=== PATIENT | female | born 1960 | race Caucasian/White ===

== ENCOUNTER 2016-11-04 08:51 | Day surgery (SDC) | payer OTHER ==
[~2016-11-04] VITALS: Ht 172.7 cm; Wt 66.8 kg
[2016-11-04] VITALS (9 sets, daily range): BP systolic 91–109; BP diastolic 68–77; PULSE 64–81; RESP 18–30; Ht 172.7 cm; Wt 66.8 kg
[2016-11-04] MEDS ORDERED: SEVOFLURANE 15 MIN ONE (09:00)
[2016-11-04] MEDS ORDERED: EPINEPHrine 1 MG/ML 30 ML INJ ONE (09:24)
[2016-11-04] MEDS ORDERED: FENTAnyl 50 MCG/ML VIAL ONE ×3 (09:28→11:46)
[2016-11-04] MEDS ORDERED: MIDAZOLAM 1 MG/ML 2 ML INJ ONE ×2 (09:28→09:29)
[2016-11-04] MEDS ORDERED: ROPIVACAINE 0.5 % 30 ML VIAL ONE (09:28)
[2016-11-04] MEDS ORDERED: ONDANSETRON 4 MG INJ ONE (09:59)
[2016-11-04] MEDS ORDERED: PROPOFOL 20 ML ONE (09:59)
[2016-11-04] MEDS ORDERED: SUCCINYLCHOLINE CHLORIDE 100 MG/5 ML SYG IV ONE (09:59)
[2016-11-04] MEDS ORDERED: CEFAZOLIN 1 GM INJ ONE (09:59)
[2016-11-04] MEDS ORDERED: METOCLOPRAMIDE 10 MG INJ ONE (09:59)
[2016-11-04] MEDS ORDERED: ROCURONIUM 50 MG INJ ONE (09:59)
--- NOTE | 2016-11-04 11:04 | HPN ---
Date/Time of Note Date/Time of Note DATE: 11/04/16 TIME: 11:04 Interval H&P Admission Note Pt. seen H&P reviewed: No system changes DIPESH LIANG MD Nov 04, 2016 11:04
[2016-11-04] MEDS ORDERED: ONDANSETRON 4 MG INJ IV PRN (12:00)
[2016-11-04] MEDS ORDERED: hydrALAzine 20 MG INJ IV PRN (12:00)
[2016-11-04] MEDS ORDERED: HYDROmorphONE (0.2 MG/ML) 10ML SYG IV PRN ×3 (12:00)
[2016-11-04] MEDS ORDERED: FENTAnyl 50 MCG/ML VIAL IV PRN ×2 (12:00)
[2016-11-04] MEDS ORDERED: LABETALOL HCL 20MG INJ IV PRN (12:00)
[2016-11-04] MEDS ORDERED: MEPERIDINE 25 MG INJ IV PRN (12:00)
[2016-11-04] MEDS ORDERED: BUPIVACAINE 0.5% (SDV) 30 ML INJ ONE (12:08)
--- NOTE | 2016-11-04 12:38 | OPR ---
Date/Time of Note Date/Time of Note DATE: 11/04/16 TIME: 12:33 Operative Report Free Text/Dictation Pre Op Dx: Left shoulder glenohumeral osteoarthritis Post Op Dx: [Same] Procedure: 1. Left shoulder arthroscopy glenohumeral debridement 2. subacromial decompression Surgeon: Dipesh Liang [employer] Operator: None Anesthesiologist: Dr. FIELD EBL: Minimal Date of Surgery: November 04, 2016 Complications: None Implants: None Indications for Procedure: This is a 56-year-old female with severe glenohumeral osteoarthritis. She has had progressive pain has failed nonoperative treatment. Now presents for the above listed elective procedure. Risks and benefits were discussed as including but not limited to infection bleeding blood clots hardware failure hardware prominence along with other medical/ surgical complications including stiffness were discussed and informed consent was obtained. Description of Procedure: The patient was brought into the operating room after the correct extremity was identified in the preoperative area. She had a block placed she had preoperative antibiotics. Left she was then positioned on the shoulder table all bony prominences were adequately padded. The left shoulder and upper extremity were prepped and draped in the sterile manner. I then made a standard posterior portal incision and introduced the arthroscope into the glenohumeral joint significant finding was grade IV chondromalacia of the majority of the humeral head and the inferior and posterior aspect of the glenoid. There was significant chondrocalcinosis this is I did establish an anterior portal did a debridement of the glenohumeral joint including the superior labrum the biceps tendon was intact without any evidence of a tear rotator cuff including supraspinatus infraspinatus and the subscapularis were intact with a good insertion the superior labrum was intact without any evidence of a tear. After doing a aggressive debridement I then went into the subacromial space with a small spur was found this is taken off the lateral incision using a oblong bur. At this point I took out all instruments close the portal sites with 3-0 nylon suture. The wound sites were injected with half percent Marcaine plain dry sterile dressings applied patient was then extubated and transported to recovery room in stable condition. Surgeon see signature line DIPESH LIANG MD Nov 04, 2016 12:38
== END 2016-11-04 14:21 | disposition home or self-care (01) ==
LOC: SDS 08:51
PROVIDERS: ATTEND Specialist
DX: M19.012 Primary osteoarthritis, left shoulder (principal)
CPT/HCPCS: 29822; J0171; J0690; J1170; J2175; J2250; J2405; J2765; J2795; J3010; Z7512; Z7610; J7999

== ENCOUNTER 2016-11-15 07:51 | Day surgery (SDC) | payer OTHER ==
[~2016-11-15] VITALS: Ht 172.7 cm; Wt 65.3 kg
[2016-11-15 08:33] VITALS: Ht 172.7 cm; Wt 65.3 kg
[2016-11-15 09:19] VITALS: BP 134/73; PULSE 58; RESP 26
--- NOTE | 2016-11-15 10:02 | OPPN ---
Date/Time of Note Date/Time of Note DATE: 11/15/16 TIME: 10:00 Proc Note GI Procedure Date 11/15/16 Pre-procedure Diagnosis Screening colonoscopy Post-procedure Diagnosis Polyp in the colon Procedure Performed: Colonoscopy Surgeon see signature line [employer] none Anesthesia Type: moderate sedation Tourniquet Time none EBL none Transfusion required none Grafts/Implants none Tubes/Drains none Complication(s) none Pt Condition post procedure: stable Disposition: home Indications: screening/surveillance Operative\Procedure Findings Colonoscopy with cold forceps biopsy Procedure Description Colonoscopy with removal of the polyp from the cecum polyp was diminutive and it was removed with cold biopsy forceps HUNTER AMOR MD Nov 15, 2016 10:02
[2016-11-15] MEDS ORDERED: FENTAnyl 50 MCG/ML VIAL ONE (10:03)
[2016-11-15] MEDS ORDERED: MIDAZOLAM 1 MG/ML 2 ML INJ ONE ×3 (10:03→15:56)
[2016-11-15 10:16] VITALS: BP 112/73; PULSE 58; RESP 14
--- NOTE | 2016-11-15 10:38 | GILP ---
DATE OF PROCEDURE: 11/15/2016 PROCEDURE PERFORMED: Colonoscopy. INDICATIONS FOR PROCEDURE: A 56-year-old female undergoing this procedure for colon cancer screening. The risks of the procedure, related and unrelated complications, sedative risks, and alternatives discussed, informed consent was obtained. DESCRIPTION OF PROCEDURE: The patient was brought to the GI lab, sedated with Versed 4 mg and fentanyl 100 mg. After optimal sedation, digital examination was done, which was normal. Scope was passed with much ease into the rectum. Advanced slowly through sigmoid, descending, transverse colon all the way into the cecum. Entered into terminal ilium, which was normal up to 2 feet. Appendiceal orifice identified, which was tangentially placed, extremely angulated, managed to identified cauliflower diminutive polyp, successfully removed by cold biopsy forceps. The rest of the colon appeared normal. Clarity was good. Cleanliness was good except on the left side, it was adequate. Retroversion done. No hemorrhoid seen. No growth seen. Scope was straightened out and removed with good patient tolerance. IMPRESSION: 1. Negative all the way into the cecum, except for a diminutive polyp, removed successfully with a cold biopsy forceps from the cecum. 2. Normal terminal ileum up to 2 feet. 3. Normal retroflexion. 4. Normal rest of the colon. 5. Clarity and cleanliness were good. PLAN: Review the histopathology of the polyp. Based on the histopathology, we will decide the next surveillance colonoscopy. Dictated By: Harsh Franco MD /colette/kavita /Document#: [id number] ; Uyen LUNA
== END 2016-11-15 15:31 | disposition home or self-care (01) ==
LOC: GIL 07:51
PROVIDERS: ATTEND Internal Medicine Gastroenterology
DX: Z12.11 Encounter for screening for malignant neoplasm of colon (principal)
CPT/HCPCS: 45378; 88305; J2250; J3010; Z7610

== ENCOUNTER 2017-03-24 18:23 | Inpatient (IN) | END 2017-03-31 11:12 | disposition home or self-care (01) | DRG 378 ==